=== PATIENT | female | born 1995 | race African-American/Black ===

== ENCOUNTER 2017-01-26 21:21 | Emergency (ER) | payer MEDICAID ==
[2017-01-26] MEDS ORDERED: ONDANSETRON 4 MG TAB.RAPDIS PO ONE (22:22)
--- NOTE | 2017-01-26 22:45 | ER Document Report ---
ED General - General Chief Complaint: Abdominal Pain Stated Complaint: ABDOMINAL PAIN Time Seen by Provider: 01/26/17 22:21 Notes: Patient is a 21-year-old female at approximately 14 weeks by last menstrual period who presents with concerns about intermittent palpitations that occurred earlier today but have now resolved. In triage patient was complaining of a stabbing pain of her chest and abdomen but to me she denies these complaints. She quickly states that she is not having any pain only that she had had some "fluttering" earlier today that is now resolved. Her main concern is that she is currently , does not have access to care , and is wanting to have an ultrasound. She denies any focal abdominal pain. No vaginal bleeding or discharge. No dysuria. She does have a history of atrial fibrillation and is apparently supposed to be on metoprolol but is not taking this medication. 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 She has not noted that anything seems to improve or worsen her episodes of fluttering. She denies any chest pain or dyspnea. - Related Data Allergies/Adverse Reactions: No Known Allergies Allergy (Unverified 01/26/17 21:34) Past Medical History - General Information source: Patient - Social History Smoking Status: Never Smoker Frequency of alcohol use: None Drug Abuse: None Lives with: Spouse/Significant other Family History: Reviewed & Not Pertinent Renal/ Medical History: Denies: Hx Peritoneal Dialysis Review of Systems - Review of Systems Notes: Constitutional: Negative for fever. HENT: Negative for sore throat. Eyes: Negative for visual changes. Cardiovascular: Negative for chest pain. Positive for palpitations Respiratory: Negative for shortness of breath. Gastrointestinal: Negative for abdominal pain, vomiting or diarrhea. Genitourinary: Negative for dysuria. Musculoskeletal: Negative for back pain. Skin: Negative for rash. Neurological: Negative for headaches, weakness or numbness. 10 point ROS negative except as marked above and in HPI. Physical Exam - Vital signs Vitals: BP Pulse Ox 122/78 100 01/26/17 22:16 01/26/17 22:16 Interpretation: Normal Notes: PHYSICAL EXAMINATION: GENERAL: Well-appearing, well-nourished and in no acute distress. HEAD: Atraumatic, normocephalic. EYES: Pupils equal round and reactive to light, extraocular movements intact, sclera anicteric, conjunctiva are normal. ENT: nares patent, oropharynx clear without exudates. Moist mucous membranes. NECK: Normal range of motion, supple without lymphadenopathy LUNGS: Breath sounds clear to auscultation bilaterally and equal. No wheezes rales or rhonchi. HEART: Regular rate and rhythm without murmurs ABDOMEN: Soft, nontender, normoactive bowel sounds. No guarding, no rebound. No masses appreciated. EXTREMITIES: Normal range of motion, no pitting or edema. No cyanosis. NEUROLOGICAL: No focal neurological deficits. Moves all extremities spontaneously and on command. PSYCH: Normal mood, normal affect. SKIN: Warm, Dry, normal turgor, no rashes or lesions noted. Course - Re-evaluation Re-evalutation: 01/26/17 22:43 Patient presents with palpitations that have since resolved with a history of atrial fibrillation. Her EKG does not demonstrate any evidence of A. fib, the normal sinus rhythm. She has a history of tachycardia. She is currently off metoprolol and I do not see any indication to restart this medication at this time as she is not currently tachycardic or in atrial fibrillation. She denies any chest pain. Denies any focal abdominal pain. She is 14 weeks by dates and denies any abdominal pain to me although in triage apparently did complain of intermittent sharp pains in her abdomen. Bedside ultrasound demonstrates a normal intrauterine , heart rate of 153 bpm. Active movement. Appears to be approximately 13-14 weeks by gestation but I have informed the patient that this is not a formal ultrasound and she will need to complete a appropriate follow-up with an CORPORATE INTERN for establishment of care and formal ultrasound. There is no indication for formal ultrasound here in the emergency department as patient is not having any vaginal bleeding or abdominal pain. She denies any dysuria to indicate a need for an acute urinalysis. I do not see an indication for additional labs at this time. She denies any shortness of breath, pleuritic pain, or syncope to suggest an alternative diagnosis such as an acute pulmonary embolus, pneumothorax or acute pneumonia. Patient is satisfied with her care today and very happy that she was able to witness the ultrasound at the bedside. At this time will discharge with return precautions and follow-up recommendations. Verbal discharge instructions given a the bedside and opportunity for questions given. Medication warnings reviewed. Patient is in agreement with this plan and has verbalized understanding of return precautions and the need for primary care follow-up in the next 24-72 hours. - Vital Signs Vital signs: Temp Pulse Resp BP Pulse Ox 17 120/78 100 01/26/17 23:00 01/26/17 23:00 01/26/17 23:00 Discharge - Discharge Clinical Impression: Palpitations Qualifiers: Weeks of gestation: 13 weeks Qualified Code(s): Z3A.13 - 13 weeks gestation of Condition: Good Disposition: HOME, SELF-CARE Additional Instructions: Please follow-up in the women's clinic at your earliest ability to establish care. The ultrasound her baby today appears normal with appropriate heart rate and active movement. Your EKG is also normal. Return for any additional symptoms that are worrisome to you. For nausea and vomiting during I recommend: Start with 10-12.5 mg of pyridoxine (vitamin B6) three times a day for 2 days. If not fully effective, Increase to 12.5 mg of pyridoxine four times a day for 2 days. If not fully effective, Increase to 25 mg of pyridoxine three times a day for 2 days. If not fully effective, Continue 25 mg pyridoxine 3 times a day, and add 12.5 mg of doxylamine before bedtime each day for 2 days. If not fully effective, Continue 25 mg pyridoxine 3 times a day, and take 12.5 mg of doxylamine twice a day. If not fully effective, Continue 25 mg pyridoxine 3 times a day, and take 12.5 mg of doxylamine three times a day. If not fully effective, Continue 25 mg pyridoxine 3 times a day, and 12.5 mg of doxylamine 3 times a day , while adding Emetrol, one to two tablespoons (15-30 cc) taken once or twice a day as needed. (Emetrol is an [id number] mixture of sugar syrups and phosphoric acid [phosphorylated carbohydrate solution]) that acts by soothing the actual wall of the gastrointestinal tract). If not fully effective, Consult with your doctor.
[2017-01-26 23:13] VITALS: BP 120/78
--- NOTE | 2017-01-27 06:10 | EKG REPORT ---
SEVERITY:- DEFECTIVE ECG - RIGHT AND LEFT ARM LEADS REVERSED, PLEASE REPEAT ECG : Confirmed by: Duong Mike MD 27-Jan-2017 06:10:15
== END 2017-01-26 23:23 | disposition home or self-care (01) ==
LOC: ER 21:21
DX: O26.891 Other specified pregnancy related conditions, first trimester (principal); R00.2 Palpitations; Z3A.13 13 weeks gestation of pregnancy
CPT/HCPCS: 93005; 99284; 93010; S0119